=== PATIENT | female | born 1990 | race Caucasian/White ===

== ENCOUNTER 2020-08-16 10:46 | Emergency (ER) | payer OTHER ==
[~2020-08-16] VITALS: Ht 157.5 cm; Wt 77.1 kg
[2020-08-16 10:53] VITALS: Ht 157.5 cm; Wt 77.1 kg
[2020-08-16] MEDS ORDERED: IBU600 M2 PO (11:41)
[2020-08-16 11:56] VITALS: BP 105/72
== END 2020-08-16 11:57 | disposition home or self-care (01) ==
LOC: ED 10:46
DX: S63.91XA Sprain of unspecified part of right wrist and hand, initial encounter (principal); W22.8XXA Striking against or struck by other objects, initial encounter; Y93.89 Activity, other specified; Y92.89 Other specified places as the place of occurrence of the external cause; Y99.8 Other external cause status